=== PATIENT | male | born 1945 | race Caucasian/White ===

== ENCOUNTER 2016-07-31 08:34 | Day surgery (SDC) | payer MEDICARE, MEDICAID ==
[~2016-07-31] VITALS: Ht 167.6 cm; Wt 85.9 kg
[2016-07-31] VITALS (12 sets, daily range): BP systolic 120–170; BP diastolic 80–98
[~2016-07-31 08:34] MED LIST: LACTATED RINGERS 1,000 ML IV SCH; OXYMETAZOLINE 0.05% NASAL SPRAY (AFRIN) 15 ML BTL SCH; SODIUM CHLORIDE FLUSH 3 ML SYR IV SCH
[2016-07-31] MEDS ORDERED: OXYMETAZOLINE 0.05% NASAL SPRAY (AFRIN) 15 ML BTL ONE (10:24)
[2016-07-31] MEDS ORDERED: BACITRACIN/POLYMYXIN OINTMENT 1 PACKET TOP ONE (10:24)
[2016-07-31] MEDS ORDERED: LIDOCAINE/EPINEPHRINE 1% 1:100,000 (XYLOCAINE) 30 ML VIAL INJ ONE (10:24)
[2016-07-31] MEDS ORDERED: SUCCINYLCHOLINE 20 MG/ML 10 ML VIAL ONE (11:27)
[2016-07-31] MEDS ORDERED: ALFENTANIL 1,000 MCG/2 ML AMP IV ONE (11:27)
[2016-07-31] MEDS ORDERED: PROPOFOL 20 ML IV ONE (11:27)
[2016-07-31] MEDS ORDERED: ePHEDrine SULFATE 50 MG/ML 1 ML AMP ONE (12:36)
--- NOTE | 2016-07-31 13:55 | NUR ---
Pt admitted to [facility] for post op observation. Informed that pt is to stay for 24hrs since he does not have anyone to accompany him home. Pt denies nausea or pain. Nasal bleeding noted, drip pad changed. Pt voided in toilet prior to lying in bed. NS @ 100mL/hr initiated for the rest of current bag, per Dr Brink's orders.
[2016-07-31] MEDS ORDERED: ONDANSETRON 2 MG/ML (Z0FRAN) 2 ML VIAL IV PRN (14:25)
[2016-07-31] MEDS ORDERED: morphine INJ 2 MG/ML 1 ML SYRINGE IV PRN (14:25)
[2016-07-31] MEDS: ACETAMINOPHEN/CODEINE 300MG/30 MG (TYLENOL #3) TABLET PO PRN ×2 (15:44→23:14)
--- NOTE | 2016-07-31 15:45 | NUR ---
Pt sitting on edge of bed and c/o having a headache of 5/10. Pt eating jello and then tylenol #3 2 tabs as ordered for pain. Drip pad in place with small amount of red drng noted.
[2016-07-31] MEDS: D5 1/2 NS W/KCL 20 MEQ/L 1,000 ML IV SCH ×2 (16:10→21:16)
--- NOTE | 2016-07-31 18:37 | NUR ---
Pt states that the Tylenol has kicked in and that he feels much better. Pt appears more comfortable than earlier. Drip pad has been changed approx 6 times since admission. Bleeding appears to be slowing down. Encouraged to call for pain or N/V. IVF infusing with no difficulty. Tolerating CL without nausea, though he only ate approx 25% of the tray. Denies needs. Call light within reach.
--- NOTE | 2016-07-31 20:40 | NUR ---
Pt found on RA, SPO2 92%, HR 61.
[2016-07-31] MEDS ORDERED: SALINE NASAL SPRAY (OCEAN) 45 ML BTL SCH (21:00)
[2016-07-31] MEDS: HYPERTONIC SALINE IRRIGATION 1000 ML BTL IR SCH (21:17)
[2016-08-01 00:07] VITALS: BP 157/79
[2016-08-01 04:16] VITALS: BP 150/67
--- NOTE | 2016-08-01 06:11 | NUR ---
Patient rests in bed throughout night without needs. Eats a regular diet during evening and tolerates well. Drip pad changed x2 this shift. No needs at this time.
[2016-08-01 08:29] VITALS: BP 143/88
[2016-08-01] MEDS: HYPERTONIC SALINE IRRIGATION 1000 ML BTL IR SCH (09:00)
--- NOTE | 2016-08-01 10:43 | NUR ---
Discharge instructions thoroughly reviewed with patient, demonstrates understanding. Tolerated regular breakfast well. SL removed with catheter tip intact. Supplies for nasal drainage sent with patient. Drip pad in place. Pt encouraged to take it easy today. Scripts sent to pt's preferred pharmacy. Belongings and DC packet sent with patient. Pt dismissed to private vehicle accompanied by Esperanza Samuels. Pt states "you tell everyone who had anything to do with me here that they all did a great job".
== END 2016-08-01 10:43 | disposition home or self-care (01) ==
LOC: ASC 08:34 → UNDOADMOB 13:52 → MED/SURG 13:52 → ASC 08-01 10:43 → UNDODISOB 08-01 10:43
PROVIDERS: ATTEND Otolaryngology
DX: J34.2 Deviated nasal septum (principal); J34.3 Hypertrophy of nasal turbinates; Z87.891 Personal history of nicotine dependence
CPT/HCPCS: 30130; 30520; 31240; 88305; 88311; A9270; J0330; J7120